=== PATIENT | female | born 1995 | race Caucasian/White ===

== ENCOUNTER 2022-05-20 02:45 | Inpatient (IN) | payer OTHER ==
[2022-05-20 18:18] LABS: Absolute Neutrophil Ct (ANC) 7.13 x10^3/uL (1.4-6.9); Basophil (Absolute #) 0.03 x10^3/uL (0-0.4); Eosinophil % 0.7 % (0.00-5.0); Eosinophil (Absolute #) 0.07 x10^3/uL (0-0.5); Hematocrit 35.6 % (35-47); Hemoglobin 12.1 g/dL (12.0-16.0); Lymphocyte (Absolute #) 2.18 x10^3/uL (1.0-4.6); Lymphocytes % 21.4 % (24.0-44.0); Mean Cell Volume 87.7 fL (78-100); Mean Corpuscular Hemoglobin 29.8 pg (26-32); Mean Platelet Volume 9.8 fL (7.5-11.0); Monocytes % 6.9 % (0.0-12.0); Neutrophil % 70.1 % (36.0-66.0); Platelet Count 233 x10^3/uL (150-450); Red Blood Count 4.06 x10^6/uL (4.1-5.4); Red Cell Distribution Width 11.9 % (11.5-14.0); White Blood Count 10.2 x10^3/uL (4.0-10.5)
[2022-05-20 18:41] LABS: Amphetamine,Urine NEGATIVE (NEGATIVE); Barbiturate,Urine NEGATIVE (NEGATIVE); Benzodiazepine,Urine NEGATIVE (NEGATIVE); Cocaine,Urine NEGATIVE (NEGATIVE); Methadone,Urine NEGATIVE (NEGATIVE); Opiate,Urine NEGATIVE (NEGATIVE); PCP,Urine NEGATIVE (NEGATIVE); THC,Urine NEGATIVE (NEGATIVE)
[2022-05-20 19:08] LABS: ABO TYPING A; Antibody Screen NEGATIVE (NEGATIVE); RH TYPING POSITIVE
[2022-05-20] MEDS ORDERED: TYLENOL EXTRA STRENGTH 500 MG PO PRN (21:00)
[2022-05-20] MEDS: Lactated Ringers 1,000 ML IV SCH (22:23)
[2022-05-21] MEDS ORDERED: FENTANYL 2 MCG-BUPIV 0.125%-NS 250 ML Epidur 250 ML EPIDURAL SCH
[2022-05-21] MEDS ORDERED: Zofran 4 MG/2 ML VIAL IV PRN
[2022-05-21] MEDS ORDERED: STADOL 2 MG IV PRN
[2022-05-21] MEDS ORDERED: Lactated Ringers 1,000 ML IV ONE
[2022-05-21] MEDS ORDERED: BRETHINE 1 MG/ML ONE (04:33)
[2022-05-21] MEDS ORDERED: BRETHINE 1 MG/ML SQ ONE (04:37)
[2022-05-21] MEDS ORDERED: Zithromax 500 MG/ 250 ML NaCl Premix 500 MG/250 ML IVPB IV ONE (05:54)
[2022-05-21] MEDS ORDERED: PITOCIN 30 UNITS/ LR 500 ML 30 UNITS/500 ML PLAST..BAG IV SCH ×2 (06:00)
[2022-05-21] MEDS ORDERED: KEFZOL 1 GM ONE (06:02)
[2022-05-21] MEDS ORDERED: PHENYLEPHRINE HCL ONE (06:03)
[2022-05-21] MEDS ORDERED: Zofran 4 MG/2 ML VIAL ONE (06:11)
[2022-05-21] MEDS ORDERED: Astramorph-Pf 5 MG/10 ML ONE (06:17)
[2022-05-21] MEDS ORDERED: Pitocin 10 UNITS/ML ONE ×2 (06:21)
[2022-05-21] MEDS ORDERED: Marcaine 0.5%/Epinephrine 10 ML ONE (06:37)
--- NOTE | 2022-05-21 08:32 | XRAY ---
Indication: Follow-up section. Comparison: None KUB nonacute and nonobstructed without radiopaque foreign body. Query 5 mm gallstone versus right renal calculus. Remaining solid organs and osseous structures unremarkable. Comment: Preliminary interpretation made by [facility]. No critical discrepancy.
[2022-05-21] MEDS ORDERED: XYLOCAINE 1% HCL 20 ML MDV IJ PRN (09:16)
[2022-05-21] MEDS ORDERED: TUCKS TP PRN (09:16)
[2022-05-21] MEDS ORDERED: Dermoplast Spray TP PRN (09:16)
[2022-05-21] MEDS ORDERED: LANSINOH 40 GM TOP PRN (09:16)
[2022-05-21] MEDS: Mylicon 80MG PO PRN (11:06)
[2022-05-21 13:13] LABS: Absolute Neutrophil Ct (ANC) 12.04 x10^3/uL (1.4-6.9); Basophil (Absolute #) 0.03 x10^3/uL (0-0.4); Eosinophil (Absolute #) 0 x10^3/uL (0-0.5); Hematocrit 32.9 % (35-47); Hemoglobin 11.2 g/dL (12.0-16.0); Lymphocyte (Absolute #) 2.19 x10^3/uL (1.0-4.6); Lymphocytes % 14.2 % (24.0-44.0); Mean Corpuscular Hemoglobin 29.9 pg (26-32); Mean Platelet Volume 9.9 fL (7.5-11.0); Monocyte (Absolute #) 1.05 x10^3/uL (0.0-1.3); Monocytes % 6.8 % (0.0-12.0); Neutrophil % 78.3 % (36.0-66.0); Platelet Count 211 x10^3/uL (150-450); Red Blood Count 3.74 x10^6/uL (4.1-5.4); Red Cell Distribution Width 12.1 % (11.5-14.0); White Blood Count 15.4 x10^3/uL (4.0-10.5)
[2022-05-21] MEDS ORDERED: Reglan 10 MG/2 ML IV ONE (13:52)
[2022-05-21] MEDS ORDERED: CEFAZOLIN 2 GM-D5W BAG** 2 GM/50 ML ML IV SCH (14:00)
[2022-05-21] MEDS: CEFAZOLIN 2 GM-D5W BAG** 2 GM/50 ML ML IV SCH ×2 (14:17→22:53)
[2022-05-21] MEDS: Dextrose 5%-Lr IV Solution 1000 ML 1,000 ML IV SCH ×2 (14:17→22:54)
[2022-05-21] MEDS: Lactated Ringers 1,000 ML IV SCH ×2 (22:55→22:56)
[2022-05-22 04:42] LABS: Absolute Neutrophil Ct (ANC) 11.65 x10^3/uL (1.4-6.9); Basophil (Absolute #) 0.03 x10^3/uL (0-0.4); Eosinophil % 0.1 % (0.00-5.0); Eosinophil (Absolute #) 0.01 x10^3/uL (0-0.5); Hematocrit 31.4 % (35-47); Hemoglobin 10.6 g/dL (12.0-16.0); Lymphocyte (Absolute #) 1.83 x10^3/uL (1.0-4.6); Lymphocytes % 12.6 % (24.0-44.0); Mean Cell Volume 88.2 fL (78-100); Mean Corpuscular Hemoglobin 29.8 pg (26-32); Mean Corpuscular Hgb Concent. 33.8 g/dL (32-36); Mean Platelet Volume 9.5 fL (7.5-11.0); Monocyte (Absolute #) 0.98 x10^3/uL (0.0-1.3); Monocytes % 6.7 % (0.0-12.0); Neutrophil % 79.9 % (36.0-66.0); Platelet Count 187 x10^3/uL (150-450); Red Blood Count 3.56 x10^6/uL (4.1-5.4); Red Cell Distribution Width 12.2 % (11.5-14.0); White Blood Count 14.6 x10^3/uL (4.0-10.5)
[2022-05-22 04:58] LABS: ALBUMIN 3.1 g/dL (3.5-5.0); ALKALINE PHOSPHATASE 110 U/L (38-126); ANION GAP 7.5 MEQ/L (5-15); BLOOD UREA NITROGEN 9 mg/dL (7-17); CHLORIDE 104 mmol/L (98-107); Calcium 8.7 mg/dL (8.4-10.2); Carbon Dioxide 25 mmol/L (22-30); EST GLOMERULAR FILTRATION RATE > 60.0 ML/MIN; Glucose 91 mg/dL (74-106); Potassium 4.1 mmol/L (3.5-5.1); SGOT/AST 33 U/L (14-36); SGPT/ALT 19 U/L (0-35); SODIUM 132 mmol/L (137-145); Total Protein 6.1 g/dL (6.3-8.2)
[2022-05-22] MEDS: MOTRIN 400 MG PO PRN (06:42)
[2022-05-22] MEDS: Mylicon 80MG PO PRN ×2 (06:42→19:00)
[2022-05-22] MEDS ORDERED: ENOXAPARIN SODIUM SQ ONE (08:00)
[2022-05-22 08:08] LABS: RPR Non Reactive (Non Reactive)
[2022-05-22] MEDS ORDERED: M-M-R II Vaccine With Diluent SQ ONE (09:16)
[2022-05-22] MEDS ORDERED: Adacel Vial IM ONE (09:16)
[2022-05-22] MEDS: FERREX 150 PO SCH (09:19)
[2022-05-22] MEDS: Docusate Sodium 100 MG PO SCH ×2 (09:19→21:26)
--- NOTE | 2022-05-22 10:29 | PCM.NOTE ---
Date and Time: 05/22/22 1025 Subjective Assessment: pod 1 sp csection pt resting in bed and tolerating diet. ambulating without issue. pt was noted having distended abdomen yesterday with one episode of emesis. states tolerating diet today without nausea or vomiting. vss afebrile abd; soft moderately distended incision c/d/intact uterus; firm lochia; mild a/p sp csection pod 1 with suspected ileus will order abd film flat and upright will repeat cmp tomorrow am hgb stable Objective Exam Wound Assessment: Skin/Wound Assessment Wound/Incision Assessment Start: 05/21/22 08:29 Text: Status: Active Freq: Q6H Protocol: Document 05/22/22 08:00 TP (Rec: 05/22/22 08:55 TP [id number]) Wound/Incision Assessment Lower Anterior Abdomen Wound Assessment Shift Assessment Wound Type Incision Wound Stage Non Pressure Wound Drainage Amount None General Appearance Well Approximated,Open to air, Clean/Dry Length (cm) (cm) 20 Width (cm) (cm) 0.5 Surrounding Tissue [place] Wound Photo Photo Taken No OBJECTIVE DATA Vital Signs: Vital Signs - 24 hr Temp Pulse Resp BP Pulse Ox 05/22/22 08:00 98.9 F 101 H 20 115/71 98 05/22/22 07:00 98 05/22/22 06:00 98 05/22/22 05:00 98 05/22/22 04:00 96 05/22/22 03:00 96 05/22/22 02:00 99 F 116 H 20 150/88 99 05/22/22 01:00 95 05/22/22 00:00 99.1 F 100 H 20 128/59 97 05/21/22 23:00 96 05/21/22 21:49 97 05/21/22 21:00 98 05/21/22 20:00 98.5 F 107 H 20 114/62 100 05/21/22 19:42 100 05/21/22 19:00 95 05/21/22 16:00 100 05/21/22 15:00 96 05/21/22 14:00 99.0 F 101 H 16 143/79 100 05/21/22 13:00 97 05/21/22 12:00 100 05/21/22 11:00 98 05/21/22 10:30 98.8 F 106 H 18 130/75 Pain Assessment - Last Documented Pain Intensity [Lower Anterior 2 ] Pain Intensity 0 Pain Scale Used 0-10 Pain Scale Intake and Output: Intake & Output 05/19/22 05/20/22 05/21/22 05/22/22 11:59 11:59 11:59 11:59 Intake Total 1000 3550 Output Total 2100 Balance 1000 1450 Weight 101.151 kg Lab Results: Lab Results-Last 24 Hours 05/21/22 05/22/22 05/22/22 Range/Units 12:41 04:00 04:30 WBC 15.4 H 14.6 H (4.0-10.5) x10^3/uL RBC 3.74 L 3.56 L (4.1-5.4) x10^6/uL Hgb 11.2 L 10.6 L (12.0-16.0) g/dL Hct 32.9 L 31.4 L (35-47) % MCV 88.0 88.2 (78-100) fL MCH 29.9 29.8 (26-32) pg MCHC 34.0 33.8 (32-36) g/dL RDW 12.1 12.2 (11.5-14.0) % Plt Count 211 187 (150-450) x10^3/uL MPV 9.9 9.5 (7.5-11.0) fL Gran % 78.3 H 79.9 H (36.0-66.0) % Immature Gran % (Auto) 0.5 H 0.5 H (0.00-0.4) % Nucleat RBC Rel Count 0.0 0.0 (0.00-0.1) % Eos # (Auto) 0 0.01 (0-0.5) x10^3/uL Immature Gran # (Auto) 0.07 H 0.08 H (0.00-0.03) x10^3u/L Absolute Lymphs (auto) 2.19 1.83 (1.0-4.6) x10^3/uL Absolute Monos (auto) 1.05 0.98 (0.0-1.3) x10^3/uL Absolute Nucleated RBC 0.00 0.00 (0.00-0.01) x10^3u/L Lymphocytes % 14.2 L 12.6 L (24.0-44.0) % Monocytes % 6.8 6.7 (0.0-12.0) % Eosinophils % 0.0 0.1 (0.00-5.0) % Basophils % 0.2 0.2 (0.0-0.4) % Absolute Granulocytes 12.04 H 11.65 H (1.4-6.9) x10^3/uL Basophils # 0.03 0.03 (0-0.4) x10^3/uL Sodium 132 L (137-145) mmol/L Potassium 4.1 (3.5-5.1) mmol/L Chloride 104 (98-107) mmol/L Carbon Dioxide 25 (22-30) mmol/L Anion Gap 7.5 (5-15) MEQ/L BUN 9 (7-17) mg/dL Creatinine 0.60 (0.52-1.04) mg/dL Estimated GFR > 60.0 ML/MIN Glucose 91 (74-106) mg/dL Calcium 8.7 (8.4-10.2) mg/dL Total Bilirubin 0.60 (0.2-1.3) mg/dL AST 33 (14-36) U/L ALT 19 (0-35) U/L Alkaline Phosphatase 110 (38-126) U/L Serum Total Protein 6.1 L (6.3-8.2) g/dL Albumin 3.1 L (3.5-5.0) g/dL Radiology Exams: Radiology Procedures Category Date Time Status ABDOMEN 2 VIEW Stat Exams 05/22/22 Ordered KUB Routine Exams 05/21/22 06:31 Completed Assessment/Plan (1) Delivery by section Current Visit: Yes Status: Acute Code(s): RAK5788 - (2) Ileus, postoperative Current Visit: Yes Status: Acute Code(s): K91.89 - OTH POSTPROCEDURAL COMPLICATIONS AND DISORDERS OF DGSTV SYS; K56.7 - ILEUS, UNSPECIFIED
[2022-05-22 10:45] LABS: HBsAg Screen Negative (Negative); HIV Screen 4th Generation wRfx Non Reactive (Non Reactive)
[2022-05-22] MEDS ORDERED: THERAGRAN MULTIVITAMIN PO SCH (11:00)
[2022-05-22] MEDS: NORCO 5/325 MG PO PRN ×2 (11:05→16:21)
[2022-05-22] MEDS: SYNTHROID 75 MCG PO SCH (11:05)
--- NOTE | 2022-05-22 19:06 | XRAY ---
Indication: Bloating. Status post section 2 days ago. Comparison: One day earlier 2 view abdomen demonstrates nonspecific nonobstructed bowel gas pattern. No large free air. Solid organs and osseous structures unremarkable. Comment: Preliminary interpretation made by [facility]. No critical discrepancy.
[2022-05-22 21:51] VITALS: O2SAT 99
[2022-05-23] MEDS: NORCO 5/325 MG PO PRN (00:02)
[2022-05-23 05:08] LABS: Absolute Neutrophil Ct (ANC) 9.18 x10^3/uL (1.4-6.9); Basophil (Absolute #) 0.04 x10^3/uL (0-0.4); Eosinophil % 1.1 % (0.00-5.0); Eosinophil (Absolute #) 0.15 x10^3/uL (0-0.5); Hematocrit 30.6 % (35-47); Hemoglobin 10.2 g/dL (12.0-16.0); Lymphocyte (Absolute #) 2.59 x10^3/uL (1.0-4.6); Lymphocytes % 19.8 % (24.0-44.0); Mean Cell Volume 90.5 fL (78-100); Mean Corpuscular Hemoglobin 30.2 pg (26-32); Mean Corpuscular Hgb Concent. 33.3 g/dL (32-36); Mean Platelet Volume 9.3 fL (7.5-11.0); Monocyte (Absolute #) 1.02 x10^3/uL (0.0-1.3); Monocytes % 7.8 % (0.0-12.0); Neutrophil % 70.5 % (36.0-66.0); Platelet Count 208 x10^3/uL (150-450); Red Blood Count 3.38 x10^6/uL (4.1-5.4); Red Cell Distribution Width 12.3 % (11.5-14.0); White Blood Count 13.1 x10^3/uL (4.0-10.5)
--- NOTE | 2022-05-23 08:15 | PCM.NOTE ---
Date and Time: 05/23/22813 Subjective Assessment: pod 2 sp csection pt resting in bed and ambulating and tolerating diet. vss afebrile abd; soft mildly distended incision c/d/intact uterus; firm lochia; mild a/p sp csection pod 2 dc home today fu office in 2 wks Objective Exam Wound Assessment: Skin/Wound Assessment Wound/Incision Assessment Start: 05/21/22 08:29 Text: Status: Active Freq: Q6H Protocol: Document 05/23/22 02:00 CHAIN MAKER HAND (Rec: 05/23/22 02:34 CHAIN MAKER HAND [id number]) Wound/Incision Assessment Lower Anterior Abdomen Wound Type Incision Dressing Status Dry & Intact Drainage Amount None Drainage Odor None/Absent General Appearance Well Approximated,Open to air, Clean/Dry Wound Photo Photo Taken No OBJECTIVE DATA Vital Signs: Vital Signs - 24 hr Temp Pulse Resp BP BP Pulse Ox 05/23/22 02:00 98.9 F 99 H 20 127/81 99 05/22/22 20:00 97.9 F 115 H 20 156/89 99 05/22/22 14:00 97.7 F 106 H 20 118/74 98 Pain Assessment - Last Documented Pain Intensity [Lower Anterior 2 ] Pain Intensity 3 Pain Scale Used 0-10 Pain Scale Intake and Output: Intake & Output 05/20/22 05/21/22 05/22/22 05/23/22 11:59 11:59 11:59 11:59 Intake Total 1000 3550 1500 Output Total 2100 Balance 1000 1450 1500 Weight 101.151 kg Lab Results: Lab Results-Last 24 Hours 05/20/22 05/23/22 Range/Units 18:01 05:05 WBC 13.1 H (4.0-10.5) x10^3/uL RBC 3.38 L (4.1-5.4) x10^6/uL Hgb 10.2 L (12.0-16.0) g/dL Hct 30.6 L (35-47) % MCV 90.5 (78-100) fL MCH 30.2 (26-32) pg MCHC 33.3 (32-36) g/dL RDW 12.3 (11.5-14.0) % Plt Count 208 (150-450) x10^3/uL MPV 9.3 (7.5-11.0) fL Gran % 70.5 H (36.0-66.0) % Immature Gran % (Auto) 0.5 H (0.00-0.4) % Nucleat RBC Rel Count 0.0 (0.00-0.1) % Eos # (Auto) 0.15 (0-0.5) x10^3/uL Immature Gran # (Auto) 0.07 H (0.00-0.03) x10^3u/L Absolute Lymphs (auto) 2.59 (1.0-4.6) x10^3/uL Absolute Monos (auto) 1.02 (0.0-1.3) x10^3/uL Absolute Nucleated RBC 0.00 (0.00-0.01) x10^3u/L Lymphocytes % 19.8 L (24.0-44.0) % Monocytes % 7.8 (0.0-12.0) % Eosinophils % 1.1 (0.00-5.0) % Basophils % 0.3 (0.0-0.4) % Absolute Granulocytes 9.18 H (1.4-6.9) x10^3/uL Basophils # 0.04 (0-0.4) x10^3/uL RPR Non Reactive (Non Reactive) Hep Bs Antigen Negative (Negative) HIV 1&2 Ab/P24 Ag 4thGn Non Reactive (Non Reactive) Radiology Exams: Radiology Procedures Category Date Time Status ABDOMEN 2 VIEW Stat Exams 05/22/22 10:50 Completed Assessment/Plan (1) Delivery by section Current Visit: Yes Status: Acute Code(s): BCF5765 - (2) Ileus, postoperative Current Visit: Yes Status: Acute Code(s): K91.89 - OTH POSTPROCEDURAL COMPLICATIONS AND DISORDERS OF DGSTV SYS; K56.7 - ILEUS, UNSPECIFIED
--- NOTE | 2022-05-23 08:20 | PCM.DS ---
Discharge Summary Date of Admission: 05/21/22 02:45 Admitting Physician: KP SALCEDO DO Primary Care Provider: KP SALCEDO DO Allergies Allergies shrimp Allergy (Intermediate, Verified 05/21/22 15:33) Swelling of Tongue and Lips Hospital Summary - Hospital Course Hospital Course: pt admitted on may 20 for cytotec vaginal induction and was 40 wks gestation. on may 21 pt was noted having nonreasurring tracing with thick meconium and it was decided to proceed with csection. pt underwent procedure without complication and was able to ambulate and tolerate diet. pt was noted having distended abdomen on pod 1 and abdominal film with flat and upright ordered showing gas throughout bowel. pt continues to tolerate diet without nausea or vomiting and at this time stable for discharge. pt was given norco for pain management and was advised to fu in office in 2 wks for postop evaluation. all questions answered to her satisfaction. - Vitals & Intake/Output Vital Signs: Vital Signs Temperature 98.9 F 05/23/22 02:00 Pulse Rate 99 H 05/23/22 02:00 Respiratory Rate 20 05/23/22 02:00 Blood Pressure 127/81 05/23/22 02:00 O2 Sat by Pulse Oximetry 99 05/23/22 02:00 Intake & Output: Intake & Output 05/20/22 05/21/22 05/22/22 05/23/22 11:59 11:59 11:59 11:59 Intake Total 1000 3550 1500 Output Total 2100 Balance 1000 1450 1500 Weight 101.151 kg - Lab Result Diagrams: 05/23/22 05:05 05/22/22 04:30 Lab Results-Last 24 Hrs: Lab Results-Last 24 Hours 05/20/22 05/23/22 Range/Units 18:01 05:05 WBC 13.1 H (4.0-10.5) x10^3/uL RBC 3.38 L (4.1-5.4) x10^6/uL Hgb 10.2 L (12.0-16.0) g/dL Hct 30.6 L (35-47) % MCV 90.5 (78-100) fL MCH 30.2 (26-32) pg MCHC 33.3 (32-36) g/dL RDW 12.3 (11.5-14.0) % Plt Count 208 (150-450) x10^3/uL MPV 9.3 (7.5-11.0) fL Gran % 70.5 H (36.0-66.0) % Immature Gran % (Auto) 0.5 H (0.00-0.4) % Nucleat RBC Rel Count 0.0 (0.00-0.1) % Eos # (Auto) 0.15 (0-0.5) x10^3/uL Immature Gran # (Auto) 0.07 H (0.00-0.03) x10^3u/L Absolute Lymphs (auto) 2.59 (1.0-4.6) x10^3/uL Absolute Monos (auto) 1.02 (0.0-1.3) x10^3/uL Absolute Nucleated RBC 0.00 (0.00-0.01) x10^3u/L Lymphocytes % 19.8 L (24.0-44.0) % Monocytes % 7.8 (0.0-12.0) % Eosinophils % 1.1 (0.00-5.0) % Basophils % 0.3 (0.0-0.4) % Absolute Granulocytes 9.18 H (1.4-6.9) x10^3/uL Basophils # 0.04 (0-0.4) x10^3/uL RPR Non Reactive (Non Reactive) Hep Bs Antigen Negative (Negative) HIV 1&2 Ab/P24 Ag 4thGn Non Reactive (Non Reactive) - Radiology Exams Ordered Rad Exams-Entire Visit: Radiology Procedures Category Date Time Status ABDOMEN 2 VIEW Stat Exams 05/22/22 10:50 Completed Discharge Exam Wound Assessment: Skin/Wound Assessment Wound/Incision Assessment Start: 05/21/22 08:29 Text: Status: Active Freq: Q6H Protocol: Document 05/23/22 02:00 RAILROAD DETECTIVE (Rec: 05/23/22 02:34 RAILROAD DETECTIVE [id number]) Wound/Incision Assessment Lower Anterior Abdomen Wound Type Incision Dressing Status Dry & Intact Drainage Amount None Drainage Odor None/Absent General Appearance Well Approximated,Open to air, Clean/Dry Wound Photo Photo Taken No Final Diagnosis/Problem List - Final Discharge Diagnosis/Problem (1) Delivery by section Current Visit: Yes Status: Acute Code(s): [id number] - (2) Ileus, postoperative Current Visit: Yes Status: Acute Code(s): K91.89 - OTH POSTPROCEDURAL COMPLICATIONS AND DISORDERS OF DGSTV SYS; K56.7 - ILEUS, UNSPECIFIED - Discharge Disposition: Home, Self-Care Condition: Stable Prescriptions: New Hydrocodone/Acetaminophen [Hydrocodone-Acetamin 5-325 mg] 1 tab PO Q6HPRN PRN #20 tablet MDD 4 PRN Reason: Pain No Action Levothyroxine Sodium 75 Mcg [Synthroid 75 Mcg] 75 mcg PO DAILY Vits96/Iron Fum/Folic [ Tablet] 1 each PO DAILY Follow up with: KP SALCEDO DO [Primary Care Provider] - 2 weeks (keep incision clean and dry )
[2022-05-23 08:52] LABS: ALBUMIN 2.7 g/dL (3.5-5.0); ALKALINE PHOSPHATASE 95 U/L (38-126); BLOOD UREA NITROGEN 9 mg/dL (7-17); CHLORIDE 108 mmol/L (98-107); Calcium 8.3 mg/dL (8.4-10.2); Carbon Dioxide 28 mmol/L (22-30); Creatinine 1 0.54 mg/dL (0.52-1.04); EST GLOMERULAR FILTRATION RATE > 60.0 ML/MIN; Glucose 93 mg/dL (74-106); Potassium 4.1 mmol/L (3.5-5.1); SGOT/AST 32 U/L (14-36); SGPT/ALT 18 U/L (0-35); SODIUM 137 mmol/L (137-145); Total Protein 5.4 g/dL (6.3-8.2)
[2022-05-23] MEDS: MOTRIN 400 MG PO PRN (09:22)
[2022-05-23] MEDS: SYNTHROID 75 MCG PO SCH (09:23)
[2022-05-23] MEDS: FERREX 150 PO SCH (09:23)
[2022-05-23] MEDS: Docusate Sodium 100 MG PO SCH (09:23)
[2022-05-23 09:59] VITALS: BP 138/65; PULSE 110
[2022-05-23] MEDS ORDERED: IRON FUM PO SCH (10:00)
[2022-05-23] MEDS ORDERED: PRENATAL VITS96 PO SCH (10:00)
[2022-05-23] MEDS ORDERED: FOLIC PO SCH (10:00)
--- NOTE | 2022-05-23 11:17 | OP ---
SURGERY DATE/TIME: 05/21/2022 0557 PREOPERATIVE DIAGNOSIS: Intrauterine at 40 weeks gestation with nonreassuring heart rate tracing with thick meconium. POSTOPERATIVE DIAGNOSIS: Intrauterine at 40 weeks gestation with nonreassuring heart rate tracing with thick meconium. PROCEDURE: Primary section, low flap transverse uterine incision, Pfannenstiel skin incision. SURGEON: Mervin Villalpando D.O. INKER MACHINE: Faviola Cho, surgical technicians. ANESTHESIA: Epidural. ESTIMATED BLOOD LOSS: 600 cc. COMPLICATIONS: None. INDICATIONS: The risks, benefits, indications and alternatives of the procedure were reviewed with the patient prior to procedure. The patient understood the risk of infection, bleeding, bowel injury, bladder injury, ureteral injury, uterine perforation, pelvic infection and thromboembolic disorder associated with the surgery and desires to have this surgery as a possible means to alleviate her current medical condition. DESCRIPTION OF PROCEDURE AND FINDINGS: At this point the patient is taken to the operating room. She was then prepared and draped in normal sterile fashion in supine position with leftward tilt. A Pfannenstiel incision is made. The incision was carried through to the fascia with sharp dissection with the use of cautery as well. The fascia was then incised transversely and dissected off the rectus muscles using sharp dissection. Electrocautery was used for hemostasis. The peritoneum was then opened taking care not to injure the bladder. The Vishal retractor was placed in through the incisional site. From this point the vesicouterine peritoneum was dissected off of the lower uterine segment. The lower segment was then accessed and a low transverse incision was made. The incision was then extended. From this point the baby's head was delivered atraumatically. The cord clamped and cut and baby transferred to the nurses. From this point the placenta was then delivered manually. The uterus was then exteriorized and emptied of all tissue. The uterine incision was then closed with two layers using 1-0 chromic suture and hemostasis obtained. From this point the uterus was then returned to the abdomen and from this point the peritoneal muscle closed in interrupted fashion using 2-0 chromic suture. Subsequently the fascia was then closed using 0 Vicryl suture and was done so without complication. The subcutaneous layer was closed with 3-0 Vicryl suture and the skin was closed with absorbable gerson called INSORB. All instruments and laps were accounted for x2. The patient was then taken to the recovery room in stable condition. The patient delivered a live baby boy at 0614 hours, weight of the baby was 7 pounds 14 ounces and 's were 7 at 1 minute and 9 at 5 minutes.
[2022-05-23] MEDS ORDERED: Adacel Vial IM ONE (11:30)
== END 2022-05-23 13:00 | disposition home or self-care (01) | DRG 787 ==
LOC: OB 02:45 → OBSVTOIN 05-21 02:45
PROVIDERS: ADMIT Obstetrics & Gynecology; ATTEND Obstetrics & Gynecology
PROC: 10D00Z1 Extraction of Products of Conception, Low, Open Approach (ICD-10-PCS; principal; 2022-05-21)
DX: O76 Abnormality in fetal heart rate and rhythm complicating labor and delivery (principal); K56.7 Ileus, unspecified; K91.89 Other postprocedural complications and disorders of digestive system; Z3A.40 40 weeks gestation of pregnancy; Z37.0 Single live birth; Z20.828 Contact with and (suspected) exposure to other viral communicable diseases
CPT/HCPCS: 36415; 59426; 59514; 62322; 64488; 74018; 74021; 76937; 76942; 80053; 80307; 81002; 85025; 86592; 86850; 86900; 86901; 87340; 87389; 90472; 90707; 90715; 96372; 99140; G0378; J0456; J0690; J1650; J2274; J2370; J2405; J2590; L0625; A9270-GY